=== PATIENT | female | born 1955 | race Two or more races ===

== ENCOUNTER 2017-04-01 15:55 | Emergency (ER) | payer BC ==
[2017-04-01] MEDS ORDERED: LIDOCAINE 1% INJ-PF (10 MG/ML) 30 ML SDV INJ ONE (16:21)
[2017-04-01] MEDS ORDERED: IPRATROPIUM/ALBUTEROL 0.5-2.5 MG/3 ML AMPUL NEB ONE (16:21)
--- NOTE | 2017-04-01 16:23 | ER Document Report ---
ED Medical Screen (RME) - General Chief Complaint: Productive Cough Stated Complaint: BREATHING ISSUES Time Seen by Provider: 04/01/17 16:18 Notes: 61-year-old female patient speaks Chilean. 3 weeks of fevers, productive cough , trouble breathing. Pain in her back when she coughs. There is some rhonchi and wheezes noted on forced cough and tenderness to palpate the back muscles. I have greeted and performed a rapid initial assessment of this patient. A comprehensive ED assessment and evaluation of the patient, analysis of test results and completion of the medical decision making process will be conducted by additional ED providers. TRAVEL OUTSIDE OF THE [place] IN LAST 30 DAYS: No - Related Data Allergies/Adverse Reactions: No Known Allergies Allergy (Verified 04/01/17 16:18) Home Medications: Current Home Medications Dm/P-Ephed/Acetaminoph/Doxylam [Nyquil D Cold & Flu Liquid] 295 ml PO ASDIR PRN 04/01/17 [History] Past Medical History - Social History Chew tobacco use (# tins/day): No Frequency of alcohol use: None Drug Abuse: None Family history: Reviewed & Not Pertinent - Past Medical History Cardiac Medical History: Reports: Hx Hypertension Renal/ Medical History: Denies: Hx Peritoneal Dialysis GI Medical History: Reports: Hx Gastroesophageal Reflux Disease Past Surgical History: Comment Only: Hx Cholecystectomy - unknown if gallbladder removed - Immunizations Hx Diphtheria, Pertussis, Tetanus Vaccination: Yes - 1 YEAR AGO Physical Exam - Vital signs Vitals: Temp Pulse Resp BP Pulse Ox 98.3 F 71 20 124/71 100 04/01/17 16:03 04/01/17 16:03 04/01/17 16:03 04/01/17 16:03 04/01/17 16:03 Course - Vital Signs Vital signs: Temp Pulse Resp BP Pulse Ox 98.3 F 71 20 124/71 100 04/01/17 16:03 04/01/17 16:03 04/01/17 16:03 04/01/17 16:03 04/01/17 16:03
--- NOTE | 2017-04-01 17:10 | RADIOLOGY REPORT (SQ) ---
EXAM DESCRIPTION: CHEST PA/LAT COMPLETED DATE/TIME: 04/01/2017 4:55 pm REASON FOR STUDY: productive cough, 3 weeks, fever COMPARISON: None. TECHNIQUE: Frontal and lateral radiographic views of the chest acquired. NUMBER OF VIEWS: Two view. LIMITATIONS: None. FINDINGS: LUNGS AND PLEURA: Slight peribronchial cuffing with minimal densities adjacent to the left hilum. This could reflect viral pneumonitis/bronchitis. Significant consolidating pneumonia is not suggested allowing for minimal volume loss in the left lower lobe. No pneumothorax. No pleural flu id. MEDIASTINUM AND HILAR STRUCTURES: No masses or contour abnormalities. HEART AND VASCULAR STRUCTURES: Heart normal size. No evidence for failure. BONES: No acute findings. HARDWARE: None in the chest. OTHER: No other significant finding. IMPRESSION: 1. Suspect viral pneumonitis/bronchitis. Doubt bacterial pneumonia. TECHNICAL DOCUMENTATION: JOB ID: [id number] [employer]- All Rights Reserved
[2017-04-01 17:24] LABS: HEMATOCRIT 38.2 % (36.0-47.0); HEMOGLOBIN 12.5 g/dL (12.0-15.5); MEAN CORPUSCULAR HEMOGLOBIN 27.5 pg (27.0-33.4); MEAN CORPUSCULAR HGB CONC 32.7 g/dL (32.0-36.0); MEAN CORPUSCULAR VOLUME 84 fl (80-97); PLATELET COUNT 159 10^3/uL (150-450); RED BLOOD COUNT 4.54 10^6/uL (3.72-5.28); RED CELL DISTRIBUTION WIDTH 16.2 % (11.5-14.0); WHITE BLOOD COUNT 11.7 10^3/uL (4.0-10.5)
[2017-04-01 17:35] LABS: ALANINE AMINOTRANSFERASE 57 U/L (9-52); ALBUMIN 4.2 g/dL (3.5-5.0); ALKALINE PHOSPHATASE 116 U/L (38-126); ANION GAP 12 (5-19); ASPARTATE AMINO TRANSFERASE 43 U/L (14-36); BILIRUBIN,DIRECT 0.2 mg/dL (0.0-0.4); BILIRUBIN,TOTAL 0.7 mg/dL (0.2-1.3); BLOOD UREA NITROGEN 11 mg/dL (7-20); CALCIUM 9.7 mg/dL (8.4-10.2); CARBON DIOXIDE 27 mmol/L (22-30); CHLORIDE 103 mmol/L (98-107); GLUCOSE 89 mg/dL (75-110); POTASSIUM 4.6 mmol/L (3.6-5.0); SODIUM 142.2 mmol/L (137-145); TOTAL PROTEIN 7.1 g/dL (6.3-8.2)
[2017-04-01 17:52] LABS: ABSOLUTE MONOCYTES # (MANUAL) 0.2 10^3/uL (0.1-1.4); ABSOLUTE NEUTROPHILS# (MANUAL) 5.5 10^3/uL (1.7-8.2); BASOPHILS % (MANUAL) 0 % (0-2); EOSINOPHILS % (MANUAL) 0 % (0-6); LYMPHOCYTES % (MANUAL) 51 % (13-45); MONOCYTES % (MANUAL) 2 % (3-13); SEGMENTED NEUTROPHILS % (MAN) 47 % (42-78); TOTAL CELLS COUNTED 100
[2017-04-01 17:53] LABS: ANISOCYTOSIS 1+; PLATELET COMMENT ADEQUATE; SMUDGE CELLS PRESENT
[2017-04-01 17:54] LABS: OVALOCYTES SLIGHT; POIKILOCYTOSIS SLIGHT; POLYCHROMASIA SLIGHT
[2017-04-01] MEDS ORDERED: ALBUTEROL SULFATE HFA (90 MCG/PUFF) 8 GM MDI (1 MDI/ER DISP) IH PRN (20:02)
[2017-04-01] MEDS ORDERED: DEXAMETHASONE 4 MG TABLET PO ONE (20:02)
[2017-04-01] MEDS ORDERED: BENZONATATE 100 MG CAPSULE PO ONE (20:03)
--- NOTE | 2017-04-01 20:04 | ER Document Report ---
ED General - General Chief Complaint: Productive Cough Stated Complaint: BREATHING ISSUES Time Seen by Provider: 04/01/17 16:18 Notes: Patient is a 61-year-old female who presents with 3 weeks of cough with clear sputum production, posttussive emesis, and feeling generally unwell. Patient reports that the coughing episodes are so severe that sometimes she feels like she cannot catch her breath. She has been using [id number] antitussive agents without any improvement of her symptoms. Nothing worsens her symptoms. She denies a history of similar symptoms in the past. She has not seen her primary doctor regarding today's concerns. She denies any history of chronic lung disease, CHF, or chronic kidney disease. She has not had a recorded fever at home. She notes that she has had very little appetite but has not had any persistent vomiting outside of posttussive emesis. No known sick contacts. She reports that she has continued to work despite her symptoms. TRAVEL OUTSIDE OF THE [place] IN LAST 30 DAYS: No - Related Data Allergies/Adverse Reactions: No Known Allergies Allergy (Verified 04/01/17 16:18) Home Medications: Current Home Medications Dm/P-Ephed/Acetaminoph/Doxylam [Nyquil D Cold & Flu Liquid] 295 ml PO ASDIR PRN 04/01/17 [History] Past Medical History - General Information source: Patient - Social History Smoking Status: Never Smoker Chew tobacco use (# tins/day): No Frequency of alcohol use: None Drug Abuse: None Lives with: Spouse/Significant other Family History: Reviewed & Not Pertinent Patient has suicidal ideation: No Patient has homicidal ideation: No - Past Medical History Cardiac Medical History: Reports: Hx Hypertension Renal/ Medical History: Denies: Hx Peritoneal Dialysis GI Medical History: Reports: Hx Gastroesophageal Reflux Disease Past Surgical History: Comment Only: Hx Cholecystectomy - unknown if gallbladder removed - Immunizations Hx Diphtheria, Pertussis, Tetanus Vaccination: Yes - 1 YEAR AGO Review of Systems - Review of Systems Notes: Constitutional: Negative for fever. HENT: Negative for sore throat. Eyes: Negative for visual changes. Cardiovascular: Negative for chest pain. Respiratory: Negative for shortness of breath. Positive for persistent cough Gastrointestinal: Negative for abdominal pain, vomiting or diarrhea. Genitourinary: Negative for dysuria. Musculoskeletal: Negative for back pain. Skin: Negative for rash. Neurological: Negative for headaches, weakness or numbness. 10 point ROS negative except as marked above and in HPI. Physical Exam - Vital signs Vitals: Temp Pulse Resp BP Pulse Ox 98.3 F 71 20 124/71 100 04/01/17 16:03 04/01/17 16:03 04/01/17 16:03 04/01/17 16:03 04/01/17 16:03 Interpretation: Normal Notes: PHYSICAL EXAMINATION: GENERAL: Well-appearing, well-nourished and in no acute distress. HEAD: Atraumatic, normocephalic. EYES: Pupils equal round and reactive to light, extraocular movements intact, sclera anicteric, conjunctiva are normal. ENT: nares patent, oropharynx clear without exudates. Moist mucous membranes. NECK: Normal range of motion, supple without lymphadenopathy LUNGS: Breath sounds clear to auscultation bilaterally and equal. No wheezes rales or rhonchi. HEART: Regular rate and rhythm without murmurs ABDOMEN: Soft, nontender, normoactive bowel sounds. No guarding, no rebound. No masses appreciated. EXTREMITIES: Normal range of motion, no pitting or edema. No cyanosis. NEUROLOGICAL: No focal neurological deficits. Moves all extremities spontaneously and on command. PSYCH: Normal mood, normal affect. SKIN: Warm, Dry, normal turgor, no rashes or lesions noted. Course - Re-evaluation Re-evalutation: 04/01/17 20:02 Patient presents with a clinical history and exam most consistent with an acute viral bronchitis. Patient is overall well in appearance without tachypnea, hypoxemia, tachycardia, or difficulty with ambulation. Breath sounds are clear bilaterally. No fever. Patient does have additional signs of upper respiratory infection including nasal congestion, sore throat, and sinus pressure. Labs and chest x-ray performed in triage are unremarkable. Will treat with bronchodilators, single dose of dexamethasone, and Tessalon Perles. At this time will discharge with return precautions and follow-up recommendations. Verbal discharge instructions given a the bedside and opportunity for questions given. Medication warnings reviewed. Patient is in agreement with this plan and has verbalized understanding of return precautions and the need for primary care follow-up in the next 24-72 hours. - Vital Signs Vital signs: Temp Pulse Resp BP Pulse Ox 97.9 F 73 14 121/59 L 96 04/01/17 20:35 04/01/17 20:35 04/01/17 20:35 04/01/17 20:35 04/01/17 20:35 - Laboratory Result Diagrams: 04/01/17 17:05 04/01/17 17:05 Laboratory results interpreted by me: 04/01/17 04/01/17 17:05 17:05 WBC 11.7 H RDW 16.2 H Lymphocytes % (Manual) 51 H Monocytes % (Manual) 2 L Abs Lymphs (Manual) 6.0 H AST 43 H ALT 57 H - Diagnostic Test Radiology reviewed: Image reviewed, Reports reviewed Radiology results interpreted by me: 04/01/17 20:03 Chest x-ray: No acute infiltrate or pneumothorax Discharge - Discharge Clinical Impression: Post-tussive emesis Acute bronchitis Qualifiers: Bronchitis organism: unspecified organism Qualified Code(s): J20.9 - Acute bronchitis, unspecified Condition: Good Disposition: HOME, SELF-CARE Additional Instructions: You were seen for symptoms most consistent with bronchitis. This can take up to 12 weeks to fully resolve. This is generally due to a viral infection. Please follow-up with your primary doctor in the next 2-3 days. Return if you develop worsening cough, vomiting, fever >100.4, pass out, begin coughing blood, or have any other symptoms that are concerning to you. Please use the medications prescribed today as directed. Prescriptions: Benzonatate [Tessalon Perles 100 mg Capsule] 100 mg PO Q8HP PRN #40 capsule PRN Reason:
[2017-04-01 20:47] VITALS: BP 121/59
== END 2017-04-01 20:47 | disposition home or self-care (01) ==
LOC: ER 15:55
DX: J20.9 Acute bronchitis, unspecified (principal); R05 Cough; R11.10 Vomiting, unspecified; R63.0 Anorexia; I10 Essential (primary) hypertension
CPT/HCPCS: 99284; 36415; 87070; 87205; 85025; 87077; 80053; 71046; J3490 ×2; J7620

== ENCOUNTER 2017-12-14 12:56 | Emergency (ER) | payer BC ==
[2017-12-14] MEDS ORDERED: NORMAL SALINE 500 ML IV ONE (13:48)
[2017-12-14] MEDS ORDERED: ONDANSETRON HCL INJ/PF 4 MG/2 ML SDV IV ONE (13:49)
[2017-12-14] MEDS ORDERED: FENTANYL CITRATE INJ/PF 100 MCG/2 ML AMPUL IV ONE (13:50)
--- NOTE | 2017-12-14 13:52 | ER Document Report ---
ED Medical Screen (RME) - General Chief Complaint: Abdominal Pain >50 Stated Complaint: ABDOMINAL PAIN Time Seen by Provider: 12/14/17 13:43 Mode of Arrival: Ambulatory Information source: Patient Notes: Patient presented to the ED complaining of abdominal pain which is worse on the right upper quadrant. She also complained of shortness of breath and chest pain. Patient has been vomiting the whole of today and not able to keep anything down. She denies fever or chills. I have greeted and performed a rapid initial assessment of this patient. A comprehensive ED assessment and evaluation of the patient, analysis of test results and completion of the medical decision making process will be conducted by additional ED providers. TRAVEL OUTSIDE OF THE [place] IN LAST 30 DAYS: No - Related Data Allergies/Adverse Reactions: No Known Allergies Allergy (Verified 12/14/17 12:57) Past Medical History - Social History Frequency of alcohol use: None Drug Abuse: None Family history: Reviewed & Not Pertinent - Past Medical History Cardiac Medical History: Reports: Hx Hypertension Renal/ Medical History: Denies: Hx Peritoneal Dialysis GI Medical History: Reports: Hx Gastroesophageal Reflux Disease Past Surgical History: Reports: Hx Cholecystectomy - Immunizations Hx Diphtheria, Pertussis, Tetanus Vaccination: Yes - 1 YEAR AGO Physical Exam - Vital signs Vitals: Temp Pulse Resp BP Pulse Ox 98.9 F 88 20 115/81 99 12/14/17 13:32 12/14/17 13:32 12/14/17 13:32 12/14/17 13:32 12/14/17 13:32 Course - Vital Signs Vital signs: Temp Pulse Resp BP Pulse Ox 98.9 F 88 20 115/81 99 12/14/17 13:32 12/14/17 13:32 12/14/17 13:32 12/14/17 13:32 12/14/17 13:32
[2017-12-14 15:18] LABS: HEMATOCRIT 48.9 % (36.0-47.0); MEAN CORPUSCULAR HEMOGLOBIN 26.2 pg (27.0-33.4); MEAN CORPUSCULAR HGB CONC 32.7 g/dL (32.0-36.0); MEAN CORPUSCULAR VOLUME 80 fl (80-97); PLATELET COUNT 167 10^3/uL (150-450); RED CELL DISTRIBUTION WIDTH 17.5 % (11.5-14.0); WHITE BLOOD COUNT 14.8 10^3/uL (4.0-10.5)
[2017-12-14 15:34] LABS: ALANINE AMINOTRANSFERASE 30 U/L (9-52); ALBUMIN 4.2 g/dL (3.5-5.0); ALKALINE PHOSPHATASE 94 U/L (38-126); ANION GAP 9 (5-19); ASPARTATE AMINO TRANSFERASE 28 U/L (14-36); BILIRUBIN,DIRECT 0.4 mg/dL (0.0-0.4); BILIRUBIN,TOTAL 0.8 mg/dL (0.2-1.3); BLOOD UREA NITROGEN 18 mg/dL (7-20); CALCIUM 9.7 mg/dL (8.4-10.2); CARBON DIOXIDE 28 mmol/L (22-30); CHLORIDE 104 mmol/L (98-107); CREATINE KINASE 23 U/L (30-135); GLUCOSE 133 mg/dL (75-110); LIPASE 44.6 U/L (23-300); POTASSIUM 4.6 mmol/L (3.6-5.0); SODIUM 141.2 mmol/L (137-145); TOTAL PROTEIN 7.4 g/dL (6.3-8.2)
--- NOTE | 2017-12-14 15:34 | RADIOLOGY REPORT (SQ) ---
EXAM DESCRIPTION: CHEST SINGLE VIEW COMPLETED DATE/TIME: 12/14/2017 3:19 pm REASON FOR STUDY: SOB COMPARISON: Chest x-ray 04/01/2017. EXAM PARAMETERS: NUMBER OF VIEWS: One view. TECHNIQUE: Single frontal radiographic view of the chest acquired. RADIATION DOSE: NA LIMITATIONS: None. FINDINGS: LUNGS AND PLEURA: No consolidation, pneumothorax or pleural effusion. MEDIASTINUM AND HILAR STRUCTURES: No masses. Contour normal. HEART AND VASCULAR STRUCTURES: Heart normal in size. Normal vasculature. BONES: No acute findings. HARDWARE: None in the chest. IMPRESSION: NO ACUTE RADIOGRAPHIC FINDING IN THE CHEST. TECHNICAL DOCUMENTATION: JOB ID: [id number] 2010 [employer]- All Rights Reserved Reading location - IP/workstation name: [email or web address]
[2017-12-14 15:39] LABS: ABSOLUTE LYMPHOCYTES# (MANUAL) 7.8 10^3/uL (0.5-4.7); ABSOLUTE MONOCYTES # (MANUAL) 0.1 10^3/uL (0.1-1.4); ABSOLUTE NEUTROPHILS# (MANUAL) 6.8 10^3/uL (1.7-8.2); BASOPHILS % (MANUAL) 0 % (0-2); EOSINOPHILS % (MANUAL) 0 % (0-6); LYMPHOCYTES % (MANUAL) 28 % (13-45); MONOCYTES % (MANUAL) 1 % (3-13); SEGMENTED NEUTROPHILS % (MAN) 46 % (42-78); TOTAL CELLS COUNTED 100
[2017-12-14 15:40] LABS: PLATELET COMMENT ADEQUATE; RBC MORPHOLOGY COMMENT NORMO-CYTIC/CHROMIC
[2017-12-14 15:42] LABS: APPEARANCE,URINE SLIGHTLY-CLOUDY; BILIRUBIN,URINE NEGATIVE (NEGATIVE); COLOR,URINE YELLOW; GLUCOSE, URINE NEGATIVE (NEGATIVE); KETONES,URINE NEGATIVE (NEGATIVE); LEUKOCYTE ESTERASE,URINE LARGE (NEGATIVE); NITRITE,URINE NEGATIVE (NEGATIVE); PROTEIN,URINE 100 mg/dL (NEGATIVE); URINE SPECIFIC GRAVITY 1.022; UROBILINOGEN,URINE NEGATIVE mg/dL (<2.0)
[2017-12-14 15:49] LABS: INTERNATIONAL RATION (INR) 0.96; PROTHROMBIN TIME 13.3 SEC (11.4-15.4)
--- NOTE | 2017-12-14 17:19 | ER Document Report ---
ED GI/ <PAUL MONTGOMERY - Last Filed: 12/14/17 23:57> - General Mode of Arrival: Ambulatory Information source: Patient TRAVEL OUTSIDE OF THE [place] IN LAST 30 DAYS: No - HPI Patient complains to provider of: Abdominal pain, Vomiting Onset: Yesterday Timing/Duration: Persistent Quality of pain: Sharp Pain Level: 4 Location: RUQ, RLQ Vaginal bleeding (Compared to normal period): None Associated symptoms: Loss of appetite, Nausea, Vomiting. denies: Blood in stool , Diarrhea, Dysuria, Fever, Urinary hesitancy, Urinary frequency, Urinary retention, Urinary urgency Exacerbated by: Denies Relieved by: Denies Similar symptoms previously: Yes Recently seen / treated by doctor: No <FRANKI MORTON - Last Filed: 12/16/17 07:32> - General Chief Complaint: Abdominal Pain >50 Stated Complaint: ABDOMINAL PAIN Time Seen by Provider: 12/14/17 13:43 Notes: Patient presents complaining of abdominal pain that started yesterday. Patient reports pain to the generalized abdominal area but worse to the right side. Patient states she did have some right lower chest pain and has had nausea and vomiting x5 episodes today. Patient denies any fever diarrhea or shortness of breath. (FRANKI MORTON) - Related Data Allergies/Adverse Reactions: No Known Allergies Allergy (Verified 12/14/17 12:57) Past Medical History - General Information source: Patient - Social History Smoking Status: Never Smoker Frequency of alcohol use: None Drug Abuse: None Occupation: None Lives with: Family Family History: Reviewed & Not Pertinent Patient has suicidal ideation: No Patient has homicidal ideation: No - Past Medical History Cardiac Medical History: Reports: Hx Hypertension Endocrine Medical History: Reports: Hx Hypothyroidism Renal/ Medical History: Denies: Hx Peritoneal Dialysis GI Medical History: Reports: Hx Gastroesophageal Reflux Disease Psychiatric Medical History: Reports: Hx Depression Past Surgical History: Reports: Hx Cholecystectomy - Immunizations Hx Diphtheria, Pertussis, Tetanus Vaccination: Yes - 1 YEAR AGO <FRANKI MORTON - Last Filed: 12/16/17 07:32> Review of Systems - Review of Systems Constitutional: No symptoms reported. denies: Fever EENT: No symptoms reported Cardiovascular: Chest pain - Sided chest Respiratory: No symptoms reported. denies: Cough, Short of breath Gastrointestinal: Abdominal pain, Nausea, Vomiting. denies: Diarrhea Genitourinary: No symptoms reported. denies: Dysuria Female Genitourinary: No symptoms reported Musculoskeletal: No symptoms reported Skin: No symptoms reported Hematologic/Lymphatic: No symptoms reported Neurological/Psychological: No symptoms reported <FRANKI MORTON - Last Filed: 12/16/17 07:32> Physical Exam - General General appearance: Appears well, Alert In distress: None - HEENT Head: Normocephalic, Atraumatic Eyes: Normal Conjunctiva: Normal Nasal: Normal Mouth/Lips: Normal Mucous membranes: Normal Neck: Normal, Supple. No: Lymphadenopathy - Respiratory Respiratory status: No respiratory distress Chest status: Nontender Breath sounds: Normal. No: Rales, Rhonchi, Stridor, Wheezing Chest palpation: Normal - Cardiovascular Rhythm: Regular Heart sounds: S1 appreciated, S2 appreciated Murmur: No - Abdominal Inspection: Normal Distension: No distension Bowel sounds: Normal Tenderness: Tender - generalized, worse to R side of abd - Back Back: CVA tenderness - mild R - Extremities General upper extremity: Normal inspection, Normal ROM General lower extremity: Normal inspection, Normal ROM - Neurological Neuro grossly intact: Yes Cognition: Normal [place] Coma Scale Eye Opening: Spontaneous [place] Coma Scale Verbal: Oriented [place] Coma Scale Motor: Obeys Commands [place] Coma Scale Total: 15 - Psychological Associated symptoms: Normal affect, Normal mood - Skin Skin Temperature: Warm Skin Moisture: Dry Skin Color: Normal <FRANKI MORTON - Last Filed: 12/16/17 07:32> - Vital signs Vitals: Temp Pulse Resp BP Pulse Ox 98.9 F 88 20 115/81 99 12/14/17 13:32 12/14/17 13:32 12/14/17 13:32 12/14/17 13:32 12/14/17 13:32 Course - Laboratory Result Diagrams: 12/14/17 14:42 12/14/17 14:42 <PAUL MONTGOMERY - Last Filed: 12/14/17 23:57> - Laboratory Result Diagrams: 12/14/17 14:42 12/14/17 14:42 <SELENEKEVTELLY - Last Filed: 12/16/17 07:32> - Re-evaluation Re-evalutation: 12/14/17 23:00 CT showing inflamed area in the small intestine, probable enteritis, questionable mass area at the spleen/adrenal area on the left side, no free air , no obvious acute abnormalities. Checking lactic acid. Mild leukocytosis, UTI with questionable infection. Urine is not clean. On reevaluation patient is actually quite well-appearing. She has mild very generalized tenderness of her upper abdomen, no guarding or rigidity. She is talkative and well-appearing. I discussed with Dr. Mcgee, he recommends checking lactic acid, calling and confirming with Radiologist that the SMA and other vessels in the abdomen are patent. Lactic acid is normal. Called and spoke with Dr. Vogt, she reports that the SMA and vessels do appear patent. Reevaluated patient again, discussed again. She is again very talkative and well-appearing. She tolerated p.o. without any difficulty. She has started to have some diarrhea, nonbloody. Discussed options. After long discussion decision was made to place patient on Cipro and Flagyl, provide with symptom management, have her follow closely with your provider potentially for an MRI to further evaluate her CAT scan, and to have patient return if she worsens in anyway including bloody bowel movements, increased pain, returned vomiting, fever, or any other concerning or worsening symptoms. Patient states satisfaction and agreement with plan. (PAUL MONTGOMERY) 12/14/17 19:27 Patient complains of continued abdominal pain that is worse to the right upper quadrant area although continues diffuse with palpation. Bedside report and handoff given to Paul LONDON (FRANKI MORTON) - Vital Signs Vital signs: Temp Pulse Resp BP Pulse Ox 98.8 F 77 19 107/68 96 12/14/17 18:10 12/14/17 23:41 12/14/17 23:41 12/14/17 23:41 12/14/17 23:41 - Laboratory Laboratory results interpreted by me: 12/14/17 12/14/17 12/14/17 14:42 14:42 14:42 WBC 14.8 H RBC 6.10 H Hgb 16.0 H Hct 48.9 H MCH 26.2 L RDW 17.5 H Monocytes % (Manual) 1 L Abs Lymphs (Manual) 7.8 H Glucose 133 H Creatine Kinase 23 L Urine Protein 100 H Ur Leukocyte Esterase LARGE H Discharge <PAUL MONTGOMERY - Last Filed: 12/14/17 23:57> <FRANKI MORTON - Last Filed: 12/16/17 07:32> - Discharge Clinical Impression: Abdominal pain Qualifiers: Abdominal location: generalized Qualified Code(s): R10.84 - Generalized abdominal pain Vomiting Qualifiers: Vomiting type: unspecified Vomiting Intractability: non-intractable Nausea presence: with nausea Qualified Code(s): R11.2 - Nausea with vomiting, unspecified Condition: Stable Disposition: HOME, SELF-CARE Additional Instructions: Te estamos tratando por serena infeccin intestinal. Comience con lquidos jeramie y serena dieta blanda, tome medicamentos (antibiticos, analgsicos si es necesario , medicamentos para nuseas si es necesario). La exploracin de gomez sp tambin mostr un bazo ruba y un vanesa prxima al bazo y la suprarrenal izquierda que debe seguirse, probablemente con serena IRM de contraste. Por favor, epifanio un seguimiento muy cercano con gomez proveedor para esto. Regrese a la luis de emergencia si algo no est elo (fiebre de 100.4 o ms, vmitos que no se detienen, dolor intenso, heces con tapan, etc.). Prescriptions: Ciprofloxacin HCl [Cipro 500 mg Tablet] 500 mg PO BID #14 tablet Ciprofloxacin HCl [Cipro 500 mg Tablet] 500 mg PO BID #6 tablet Hydrocodone/Acetaminophen [[place] 5-325 mg Tablet] 1 - 2 tab PO ASDIR #12 tablet Metronidazole [Flagyl 500 mg Tablet] 500 mg PO TID #21 tablet Metronidazole [Flagyl 500 mg Tablet] 500 mg PO TID #9 tablet Promethazine HCl [Phenergan 25 mg Tablet] 25 mg PO Q6H PRN #15 tablet PRN Reason:
[2017-12-14] MEDS ORDERED: FENTANYL CITRATE INJ/PF 100 MCG/2 ML AMPUL ONE (18:01)
[2017-12-14] MEDS ORDERED: ONDANSETRON HCL INJ/PF 4 MG/2 ML SDV ONE (18:02)
--- NOTE | 2017-12-14 21:10 | RADIOLOGY REPORT (SQ) ---
EXAM DESCRIPTION: CT ABD/PELVIS WITH IV ORAL COMPLETED DATE/TIME: 12/14/2017 8:43 pm REASON FOR STUDY: generalized abd pain, worse to r side COMPARISON: None. TECHNIQUE: CT scan of the abdomen and pelvis performed using helical scanning technique with dynamic intravenous contrast injection. Oral contrast was also administered. Images reviewed with lung, sof t tissue, and bone windows. Reconstructed coronal and sagittal MPR images reviewed. Delayed images fo r evaluation of the urinary system also acquired. All images stored on PACS. All CT scanners at this facility use dose modulation, iterative reconstruction, and/or weight based d osing when appropriate to reduce radiation dose to as low as reasonably achievable (ALARA). [facility]: Dose Right [facility]: CareDose [facility]: Dose Right [facility]: Teradose 4D [facility]: [employer] CONTRAST TYPE AND DOSE: contrast/concentration: Isovue 350.00 mg/ml; Total Contrast Delivered: 81.0 ml; Total Saline Delivered: 30.0 ml RENAL FUNCTION: Creatinine 0.57 RADIATION DOSE: CT Rad equipment meets quality standard of care and radiation dose reduction techniq ues were employed. CTDIvol: 15.1 - 18.5 mGy. DLP: 1814 mGy-cm.. LIMITATIONS: Motion artifact. FINDINGS: LOWER CHEST: No consolidation or pleural effusion. LIVER: Normal size. No masses. No dilated ducts. SPLEEN: The spleen is enlarged measuring 18.3 cm in craniocaudal diameter. PANCREAS: No significant calcifications. No adjacent inflammation or peripancreatic fluid collections . Pancreatic duct not dilated. GALLBLADDER: Not visualized. The common bile duct is mildly dilated to 12 mm. ADRENAL GLANDS: No significant masses or asymmetry at the right adrenal gland. There is a 3.2 x 3.4 cm heterogeneous lesion in between the spleen and the left adrenal gland. RIGHT KIDNEY AND URETER: No solid masses. No significant calcifications. No hydronephrosis or hyd roureter. LEFT KIDNEY AND URETER: No solid masses. No significant calcifications. No hydronephrosis or hydr oureter. AORTA AND VESSELS: No abdominal aortic aneurysm. RETROPERITONEUM: No retroperitoneal adenopathy, hemorrhage or masses. BOWEL AND PERITONEAL CAVITY: There is no evidence of bowel obstruction. The oral contrast has reache d the rectum. There is wall thickening at the small bowel in the pelvis. There is a small amount of free fluid in the abdomen. No free air. APPENDIX: Normal. PELVIS: The urinary bladder is partially distended. The uterus is present. There is free fluid in t he pelvis. ABDOMINAL WALL: There is a small fat containing umbilical hernia. BONES: Multilevel degenerative changes are seen within the spine. There is mild anterolisthesis of L 5 on S1. IMPRESSION: 1. No bowel obstruction. Wall thickening at the small bowel in the pelvis, most consis tent with enteritis. This can be secondary to acute infection, inflammation or ischemia. 2. Marked splenomegaly. 3.2 x 3.4 cm heterogeneous lesion in between the spleen and the left adrenal gland, indeterminate, may represent a splenic lesion versus an adrenal mass. This can be better zay luated with dedicated contrast enhanced MRI. 3. Small ascites. 4. Nonvisualized gallbladder, please correlate with history of cholecystectomy. Mildly dilated commo n bile duct, may be secondary to prior cholecystectomy. If there is clinical concern for choledochol ithiasis, MRCP can help in further evaluation. TECHNICAL DOCUMENTATION: JOB ID: [id number] Quality ID # [id number]: Final reports with documentation of one or more dose reduction techniques (e.g., Au tomated exposure control, adjustment of the mA and/or kV according to patient size, use of iterative reconstruction technique) 2010 [employer]- All Rights Reserved Reading location - IP/workstation name: [email or web address]
--- NOTE | 2017-12-14 21:26 | EKG REPORT ---
SEVERITY:- BORDERLINE ECG - SINUS RHYTHM BORDERLINE LEFT AXIS DEVIATION BORDERLINE T WAVE ABNORMALITIES : Confirmed by: Roya Barrett 14-Dec-2017 21:26:01
[2017-12-14] MEDS ORDERED: ONDANSETRON ODT 4 MG TAB (6 TAB/ER DISP) PO PRN (23:01)
[2017-12-14] MEDS ORDERED: CIPROFLOXACIN HCL 500 MG TABLET PO ONE (23:01)
[2017-12-14] MEDS ORDERED: METRONIDAZOLE 500 MG TABLET PO ONE (23:01)
[2017-12-14] MEDS ORDERED: HYDROCODONE/ACETAMINOPHEN 5-325 MG (6 TAB/ER DISP) PO PRN (23:01)
[2017-12-14 23:42] VITALS: BP 107/68
[2017-12-16 13:09] LABS: PATH REVIEW PATHOLOGIST REVIEWED
== END 2017-12-15 00:35 | disposition home or self-care (01) ==
LOC: ER 12:56
DX: R10.84 Generalized abdominal pain (principal); R11.2 Nausea with vomiting, unspecified; R63.0 Anorexia; R07.9 Chest pain, unspecified; I10 Essential (primary) hypertension
CPT/HCPCS: 93005; 99285; 96361; 96374; 96375; 36415; 87086; 82550; 83605; 83690; 85025; 85610; 85730; 80053; 81001; 84484; 71045; 74177; 93010; J3010; J2405